=== PATIENT | male | born 1985 | race Two or more races ===

== ENCOUNTER 2022-07-21 13:54 | Emergency (ER) | payer MEDICARE, MEDICAID ==
[~2022-07-21] VITALS: Ht 172.7 cm; Wt 93.6 kg
[~2022-07-21 13:54] MED LIST: CLIN150C2 PO; ESCI20TA29 PO; QUET-1 PO; RISP3TAB PO
[2022-07-21 14:47] LABS: BASOPHILS % (AUTO) 0.4 % (0-1); EOSINOPHILS # (AUTO) 0.3 X10'3 (0-0.9); EOSINOPHILS % (AUTO) 2.7 % (0-6); HEMATOCRIT 38.7 % (42.0-52.0); HEMOGLOBIN 12.9 g/dl (14.0-17.9); LYMPHOCYTES # (AUTO) 4.1 X10'3 (1.1-4.8); MEAN CORPUSCULAR HEMOGLOBIN 30.2 PG (27.0-31.0); MEAN CORPUSCULAR HGB CONC 33.3 g/dL (33.0-36.5); MEAN CORPUSCULAR VOLUME 90.5 FL (78-98); MEAN PLATELET VOLUME 7.8 FL (7.4-10.4); MONOCYTES # (AUTO) 1.1 X10'3 (0-0.9); MONOCYTES % (AUTO) 10.3 % (2-12); NEUTROPHILS # (AUTO) 5.2 X10'3 (1.8-7.7); NEUTROPHILS % (AUTO) 48.6 % (42-75); PLATELET COUNT 179 X10'3 (140-440); RED BLOOD COUNT 4.28 X10'6 (4.70-6.10); RED CELL DISTRIBUTION WIDTH 15.7 % (11.5-14.5); WHITE BLOOD COUNT 10.8 X10'3 (4.5-11.0)
[2022-07-21 15:00] LABS: ALANINE AMINOTRANSFERASE 9 U/L (12-78); ALBUMIN 3.3 G/DL (3.4-5.0); ALBUMIN/GLOBULIN RATIO 0.9 (1.1-1.5); ALKALINE PHOSPHATASE 99 IU/L (46-116); ANION GAP 9 (8-16); ASPARTATE AMINO TRANSFERASE 15 U/L (10-37); BILIRUBIN,TOTAL 0.2 MG/DL (0.1-1.0); BLOOD UREA NITROGEN 14 MG/DL (7-18); BUN/CREATININE RATIO 10.5 (10.0-20.0); CHLORIDE 108 MMOL/L (99-107); CREATININE 1.33 MG/DL (0.60-1.10); ETHANOL < 0.010 GM/DL (0.0-0.010); GLUCOSE 88 MG/DL (70-104); POTASSIUM 3.9 MMOL/L (3.5-5.1); SODIUM 140 MMOL/L (135-145); TOTAL CARBON DIOXIDE 23.1 MMOL/L (24-32); TOTAL PROTEIN 6.9 G/DL (6.4-8.2); eGFR 61 ML/MIN
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
--- NOTE | 2022-07-21 15:32 | NUR ---
PT LAYING IN [facility] REFUSES TO COMMUNICATE WITH STAFF. ALL CORDS/DRAWERS REMOVED FROM ROOM AND CABINETS ARE LOCKED.
[2022-07-21] MEDS ORDERED: diphenhydrAMINE 50 mg/ml inj IM ONE (15:45)
[2022-07-21] MEDS ORDERED: LORazepam 2 mg/ml vial IM ONE (15:45)
[2022-07-21] MEDS ORDERED: haloperidol lactate 5mg/ml inj IM ONE (15:45)
--- NOTE | 2022-07-21 15:45 | NUR ---
PER ASIF REEVES ATIVAN BENADRYL AND HALDOL ORD IM IF NEEDED. PT IS NOT SHOWING SX OF AGRESSION AT THIS TIME. RN WILL LEAVE THESE MEDS ACTIVE ON THE APR AND CONT TO MONITOR PT.
--- NOTE | 2022-07-21 15:49 | NUR ---
RN PROVIDED SANDWICH AND CHIPS TO PT PER PT REQ. PT REFUSED WATER. SECURITY IS STANDING BY ROOM TO ASSIST.
--- NOTE | 2022-07-21 18:22 | NUR ---
ASSUMED CARE OF THE PT. GAVE PT A NEW URINAL AND DINNER TRAY WITH SECURITY STAND BY. PT IS REFUSING VITALS AND ALL COMMUNICATION AT THIS TIME. NO S/S OF AGRESSION AT THIS TIME. MEDS IN THE MAR WILL REMAIN ACTIVE IF NEEDED.
--- NOTE | 2022-07-21 19:08 | NUR ---
Informed from DAVE Dotson that public guardian to sit with the patient for safety was denied.
--- NOTE | 2022-07-21 19:24 | NUR ---
PT LAYING ON GURNEY IN ER BED 9 WITH EYES CLOSED. NO S/S OF DISTRESS OR AGRESSION AT THIS TIME.
--- NOTE | 2022-07-21 20:28 | NUR ---
PT LAYING ON RIGHT SIDE WITH EYES OPEN. PT IS NOT INTERACTING WITH STAFF AT THIS TIME. NO S/S OF DISTRESS OR AGRESSTION OBSERVED.
[2022-07-21 21:16] LABS: CLARITY,URINE CLEAR (Clear); COLOR,URINE YELLOW (Yellow); GLUCOSE, URINE NEGATIVE (Neg); KETONES,URINE NEGATIVE (Neg); LEUKOCYTE ESTERASE ,URINE NEGATIVE (Neg); NITRITES, URINE NEGATIVE (Neg); OCCULT BLOOD,URINE TRACE-INTACT (Neg); PROTEIN,URINE NEGATIVE (Neg); UROBILINOGEN,URINE 0.2 E.U/dL (0.2-1.0)
[2022-07-21 21:21] LABS: UA COLLECTION TYPE CLN CATCH MIDSTREAM
[2022-07-21 21:22] LABS: SQUAMOUS EPITHELIAL CELL,UR NONE SEEN /LPF (FEW)
[2022-07-21 21:23] LABS: BACTERIA,URINE NONE SEEN /HPF (Neg); WBC,URINE 0-4 /HPF (0-4)
[2022-07-21 21:25] LABS: URINE AMPHETAMINE SCREEN NEGATIVE (Neg); URINE BARBITUATE SCREEN NEGATIVE (Neg); URINE BENZODIAZEPINES SCREEN NEGATIVE (Neg); URINE CANNABINOID SCREEN NEGATIVE (Neg); URINE COCAINE SCREEN NEGATIVE (Neg); URINE METHADONE SCREEN NEGATIVE (Neg); URINE OPIATE SCREEN NEGATIVE (Neg); URINE PHENCYCLIDINE SCREEN NEGATIVE (Neg)
--- NOTE | 2022-07-21 22:06 | NUR ---
PT CONTINUES TO LAY ON RIGHT SIDE WITH EYES CLOSED. NO S/S OF DISTRESS OPR AGRESSION AT THIS TIME.
--- NOTE | 2022-07-21 23:47 | NUR ---
PT IS ASLEEP ON GURNEY IN ER BED 9. PT CONTINUES TO SHOW NO S/S OF DISTRESS OR AGRESSION.
--- NOTE | 2022-07-22 01:00 | NUR ---
PT CONTINUES TO SLEEP ON GURNEY. PT HAS NOT GOTTEN OUT OF BED. RR ARE EQUAL AND UNLABORED. NO S/S OF DISTRESS OR AGGRESSION AT THIS TIME.
--- NOTE | 2022-07-22 05:33 | NUR ---
PT REMAINS ASLEEP IN ER BED 9. PT SHOWS NO S/S OF DISTRESS OR AGGRESSION.
--- NOTE | 2022-07-22 06:36 | NUR ---
Patient laying right miranda position,respirations regular.We will continue to monitor.
--- NOTE | 2022-07-22 08:15 | NUR ---
Food tray outside the room-visible to patient.Asleep at this time.respirations regular.We will monitor.
--- NOTE | 2022-07-22 09:36 | NUR ---
Remained quiet in the room,eyes open, laying miranda to right side,stated "NO" when offered breakfast tray.
[2022-07-22] MEDS ORDERED: CLOZ150T3 PO (10:31)
[2022-07-22] MEDS ORDERED: FAMO20TA8 PO (10:31)
[2022-07-22] MEDS ORDERED: FOLI1TAB27 PO (10:31)
[2022-07-22] MEDS ORDERED: BUSP30TA3 PO (10:42)
[2022-07-22] MEDS ORDERED: VALP250C44 PO (10:42)
[2022-07-22] MEDS ORDERED: POLY17PO59 PO (10:42)
[2022-07-22] MEDS ORDERED: PROP10TA10 PO (10:45)
[2022-07-22] MEDS ORDERED: [UNRECOGNIZED DRUG - CODE] PO (10:45)
[2022-07-22] MEDS ORDERED: CARB100T15 PO (10:45)
[2022-07-22] MEDS ORDERED: SENN-263 PO (10:46)
--- NOTE | 2022-07-22 10:46 | NUR ---
copied med rec from [facility] ([facility])
--- NOTE | 2022-07-22 11:02 | NUR ---
patient given a green gown, no green blanket available- security on stand by.Patient consumed approximately 80% of breakfast.Remained quiet, not making eye contact.
--- NOTE | 2022-07-22 11:12 | NUR ---
med rec copy given to Dr. Bone for review and signature.
--- NOTE | 2022-07-22 12:36 | NUR ---
Spoke with Chris SAEED/juan carlos Brown,given hm report regarding this patient.
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
--- NOTE | 2022-07-22 14:00 | NUR ---
Patient wanted to speak to [facility],Adriane made aware.
--- NOTE | 2022-07-22 17:08 | NUR ---
Patient used telephone 1x.Cooperative and redirectable at this time.
--- NOTE | 2022-07-22 18:08 | NUR ---
Patient ate 50% of dinner.
--- NOTE | 2022-07-22 18:34 | NUR ---
PT IN 4 POINT HARD RESTRAINTS HE IS VISIBLY SHAKING, HAD TO BE RECOVERED BY SECURITY FROM OUTSIDE. HE JUST RECEIVED A B52
--- NOTE | 2022-07-23 06:30 | NUR ---
Pt laying on gulee w/ his eyes closed.
--- NOTE | 2022-07-23 07:40 | NUR ---
Pt was brought breakfast. Pt stated he didn't want to eat at this time. Breakfast was left at bedside. Pt allowed for VS to be taken.
--- NOTE | 2022-07-23 09:31 | NUR ---
Pt ref to eat. Pt on gurney eyes closed.
--- NOTE | 2022-07-23 18:12 | NUR ---
assumed care of the pt. pt has finished eating his dinner and recd juice as request. pt is sitting on the er gurleicester in bed 15. pt states no other needs at this time.
--- NOTE | 2022-07-23 18:23 | NUR ---
no assessments able to be completed at this time.
--- NOTE | 2022-07-23 18:30 | NUR ---
He was eating pages out of his book. Both books removed. Than he started to eat papertowels. So now everything is out of his room.
--- NOTE | 2022-07-23 18:41 | NUR ---
books and papertowels removed from pts room as pt was eating the paper.
--- NOTE | 2022-07-23 21:44 | NUR ---
[facility] in [place] refused pt
--- NOTE | 2022-07-24 07:15 | NUR ---
PT resting quietly in bed, requesting drink of water.
--- NOTE | 2022-07-24 08:01 | NUR ---
Patient up and asking questions at door regarding time of transfer. Pt notified that transfer status is decided by [facility]
--- NOTE | 2022-07-24 09:03 | NUR ---
Patient quietly at bedside. No difficulties noted
[2022-07-24] MEDS ORDERED: haloperidol lactate 5mg/ml inj IM ONE (10:05)
[2022-07-24] MEDS ORDERED: benztropine 1 mg/ml 2ml ampule IM ONE (10:05)
[2022-07-24] MEDS ORDERED: LORazepam 2 mg/ml vial IM ONE (10:05)
[2022-07-24] MEDS ORDERED: diphenhydrAMINE 50 mg/ml inj IM ONE (10:25)
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
--- NOTE | 2022-07-24 11:26 | NUR ---
Pt very responsive to medication. Resting in bed at this time. Will continue to monitor.
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
--- NOTE | 2022-07-24 12:30 | NUR ---
PATIENT RESTING IN BED - ATE ALL OF NOON TRAY. PT AGITATED, BUT NOT SHOUTING OUT OR ATTEMPTING TO LEAVE.
--- NOTE | 2022-07-24 13:40 | NUR ---
PT SITTING UP STRAIGHT IN BED ASKING TO LEAVE TAYLOR - APPEARS AGITATED. DOES HAVE PERIODS OF DOSING OFF TO SLEEP FOR APPX 10-15 MINUTES AND THEN SITS UP WIDE AWAKE. CONTINUE TO MONITOR.
--- NOTE | 2022-07-24 14:23 | NUR ---
PT PLACED IN TWO POINT RESTRAINTS DUE TO AGRESSIVE BEHAVIOR. PRIOR MEDICATION MINIMALLY EFFECTIVE - PT SLEPT FOR APPX 30 MINUTES AND HAS BEEN SITTING UP AWAKE AT BEDSIDE SINCE THEN APPEARING AGITATED AND USING AGGRESSIVE LANGUAGE WITH STAFF. STAFF UNABLE TO ENTER ROOM WITHOUT [facility] SECURITY AT BEDSIDE - VITALS UNABLE TO BE OBTAINED AT THIS TIME FOR THIS REASON. HOWEVER, PT SITTING UP, RR 18 WITH BREATHING NON-LABORED, DENYING COMPLAINTS OF PAIN. PATIENT UNDER SITTERS SUPERVISION. WILL CONTINUE TO MONITOR CLOSELY.
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
--- NOTE | 2022-07-24 15:33 | NUR ---
PT DIRECTLY ACROSS ROOM FROM PATIENT, CONSISTENLY MONITORING.
--- NOTE | 2022-07-24 16:13 | NUR ---
SPOKE WITH MD DANIELS REGARDING INCREASED PATIENT AGGRESSION AND AGITATION. PT SHOUTING AND ASKING TO HAVE ANKLE RESTRAINTS REMOVE. HOME MEDICATIONS STILL BEING PROCESSED THROUGH PHARMACY - MD DANIELS STATED TO RESTART HOME MEDICATIONS AND CONTINUE TO MONITOR. MD AWARE HE IS IN 2 POINT RESTRAINTS. RR LOW 20'S, VOICING CONCERNS.
[2022-07-24] MEDS ORDERED: CLOZAPINE 100 MG TAB.RAPDIS PO PRN (16:45)
[2022-07-24] MEDS ORDERED: carBAMazepine 100mg chewable tablet PO SCH (17:13)
[2022-07-24] MEDS ORDERED: valproic acid 250mg capsule PO SCH (17:13)
[2022-07-24] MEDS ORDERED: busPIRone 15mg tablet PO SCH (17:13)
--- NOTE | 2022-07-24 18:31 | NUR ---
PATIENT GIVEN ARVIND CRACKERS PER REQUEST. VOIDED 300ML STRAW-COLORED URINE. PT STILL APPEARING AGITATED AND SHAKY. IN 2 PT RESTRAINTS AT THIS TIME - UNABLE TO ASSESS VS DUE TO VOILENCE. VISUALLY, RR 18. STATING HE HAS NO PAIN. SECURITY CALLED TO BED THIS EVENING WITH EARLIER LINOTYPIST. RN HANDOFF TO ARIS.
[2022-07-24 19:58] LABS: BASOPHILS % (AUTO) 0.5 % (0-1); EOSINOPHILS # (AUTO) 0.1 X10'3 (0-0.9); EOSINOPHILS % (AUTO) 1.5 % (0-6); HEMATOCRIT 39.3 % (42.0-52.0); HEMOGLOBIN 12.9 g/dl (14.0-17.9); LYMPHOCYTES # (AUTO) 3.2 X10'3 (1.1-4.8); LYMPHOCYTES % (AUTO) 32.6 % (21-51); MEAN CORPUSCULAR HEMOGLOBIN 30.3 PG (27.0-31.0); MEAN CORPUSCULAR HGB CONC 32.9 g/dL (33.0-36.5); MEAN CORPUSCULAR VOLUME 92.1 FL (78-98); MEAN PLATELET VOLUME 8.3 FL (7.4-10.4); MONOCYTES # (AUTO) 1.2 X10'3 (0-0.9); MONOCYTES % (AUTO) 12.4 % (2-12); NEUTROPHILS # (AUTO) 5.1 X10'3 (1.8-7.7); PLATELET COUNT 194 X10'3 (140-440); RED BLOOD COUNT 4.27 X10'6 (4.70-6.10); RED CELL DISTRIBUTION WIDTH 15.7 % (11.5-14.5); WHITE BLOOD COUNT 9.7 X10'3 (4.5-11.0)
[2022-07-24] MEDS: famotidine 20mg tablet PO SCH (20:09)
[2022-07-24] MEDS: propranolol 10mg tablet PO SCH (20:19)
--- NOTE | 2022-07-24 21:48 | NUR ---
2100 MEDS TO BE GIVEN @1AM , RETIMED PER PHARMACY
--- NOTE | 2022-07-25 00:05 | NUR ---
pt sleeping no visual signs of distrss
[2022-07-25] MEDS: busPIRone 15mg tablet PO SCH ×4 (02:02→20:29)
[2022-07-25] MEDS: valproic acid 250mg capsule PO SCH ×4 (02:02→20:29)
[2022-07-25] MEDS: carBAMazepine 100mg chewable tablet PO SCH ×4 (02:02→20:24)
[2022-07-25] MEDS: polyethylene glycol 3350 17gm powd pack PO SCH (08:34)
[2022-07-25] MEDS: sennosides 8.6mg tablet PO SCH (08:35)
[2022-07-25] MEDS: risperiDONE 2mg tablet PO SCH (08:36)
[2022-07-25] MEDS: quetiapine 100mg tablet PO SCH (08:36)
[2022-07-25] MEDS: famotidine 20mg tablet PO SCH ×2 (08:37→20:17)
[2022-07-25] MEDS: folic acid 1mg tablet PO SCH (08:37)
[2022-07-25] MEDS: propranolol 10mg tablet PO SCH ×2 (08:37→20:18)
--- NOTE | 2022-07-25 12:05 | NUR ---
break rn covering. pt resting quietly, eyes closed. no signs/symptoms of distress.
--- NOTE | 2022-07-25 19:30 | NUR ---
food tray provided
--- NOTE | 2022-07-26 06:22 | NUR ---
Assumed care from NOC Nurse. Pt laying on gurney eyes closed. Pt in stable condition.
--- NOTE | 2022-07-26 07:20 | NUR ---
Pt ref VS. Pt laying bri santos.
[2022-07-26] MEDS: polyethylene glycol 3350 17gm powd pack PO SCH (07:56)
[2022-07-26] MEDS: folic acid 1mg tablet PO SCH (07:56)
[2022-07-26] MEDS: valproic acid 250mg capsule PO SCH ×3 (07:57→21:07)
[2022-07-26] MEDS: busPIRone 15mg tablet PO SCH ×3 (07:58→21:07)
[2022-07-26] MEDS: propranolol 10mg tablet PO SCH ×2 (07:58→20:08)
[2022-07-26] MEDS: sennosides 8.6mg tablet PO SCH (07:58)
[2022-07-26] MEDS: famotidine 20mg tablet PO SCH ×2 (07:58→20:08)
[2022-07-26] MEDS: carBAMazepine 100mg chewable tablet PO SCH ×3 (07:59→21:07)
[2022-07-26] MEDS: quetiapine 100mg tablet PO SCH (07:59)
[2022-07-26] MEDS: risperiDONE 2mg tablet PO SCH (08:00)
--- NOTE | 2022-07-26 08:03 | NUR ---
Pt took all his morning medications. No ASE noted thus far. Pt refused morning care. Pt refused breakfast.
--- NOTE | 2022-07-26 09:08 | NUR ---
Pt laying on gurney, eyes closed. Pt is calm and cooperative at this time. RR even and unlabored.
--- NOTE | 2022-07-26 10:05 | NUR ---
Pt laying on [employer] with his eyes closed.
--- NOTE | 2022-07-26 10:51 | NUR ---
BACK TO ROOM FROM BATHROOM AT THIS TIME. PATIENT LAYED BACK DOWN ONTO RIGHT SIDE.
--- NOTE | 2022-07-26 11:54 | NUR ---
Pt on gurney resting, eyeys closed. Pt is calm and cooperative.
--- NOTE | 2022-07-26 12:48 | NUR ---
Pt ate 100% of his lunch. Pt calm and coopertive.
--- NOTE | 2022-07-26 13:50 | NUR ---
Pt took all his 1300 meds. No behaviors noted.
--- NOTE | 2022-07-26 14:46 | NUR ---
Pt on gurney resting. Pt is calm and cooperative.
--- NOTE | 2022-07-26 15:48 | NUR ---
Pt laying on gurney, pt resting. Pt is calm and has his eyes closed.
--- NOTE | 2022-07-26 16:40 | NUR ---
Pt laying on gurney, eyes are closed. Pt is calm and cooperative.
--- NOTE | 2022-07-26 17:41 | NUR ---
Dinner meal tray given.
--- NOTE | 2022-07-26 18:07 | NUR ---
Rport given to noc nurse.
--- NOTE | 2022-07-26 18:07 | NUR ---
Pt ref his dinner x3. Sub offered. Pt ref. Pt up to RR. No behaviors noted. Pt is calm and cooperative.
--- NOTE | 2022-07-26 22:33 | NUR ---
pt requested to sierra his teeth, toothbrush and paste provided
[2022-07-27] MEDS: valproic acid 250mg capsule PO SCH ×3 (07:37→20:56)
[2022-07-27] MEDS: famotidine 20mg tablet PO SCH ×2 (07:37→20:46)
[2022-07-27] MEDS: polyethylene glycol 3350 17gm powd pack PO SCH (07:37)
[2022-07-27] MEDS: folic acid 1mg tablet PO SCH (07:37)
[2022-07-27] MEDS: propranolol 10mg tablet PO SCH ×2 (07:37→20:46)
[2022-07-27] MEDS: busPIRone 15mg tablet PO SCH ×3 (07:37→20:46)
[2022-07-27] MEDS: risperiDONE 2mg tablet PO SCH (07:38)
[2022-07-27] MEDS: quetiapine 100mg tablet PO SCH (07:38)
[2022-07-27] MEDS: sennosides 8.6mg tablet PO SCH (07:38)
[2022-07-27] MEDS: carBAMazepine 100mg chewable tablet PO SCH ×3 (07:38→20:46)
--- NOTE | 2022-07-28 02:39 | NUR ---
pt awake mildly aggitated, pt requested meds to help him sleep . md notified prn med given
--- NOTE | 2022-07-28 07:45 | NUR ---
PT REMAINS CALM AND COOPERATIVE. PT HAS BEEN UP AND AMBULATED TO BATHROOM AND BACK.
[2022-07-28 10:00] VITALS: BP 106/67
[2022-07-28] MEDS: folic acid 1mg tablet PO SCH (10:07)
[2022-07-28] MEDS: valproic acid 250mg capsule PO SCH ×3 (10:07→20:21)
[2022-07-28] MEDS: busPIRone 15mg tablet PO SCH ×3 (10:07→20:21)
[2022-07-28] MEDS: propranolol 10mg tablet PO SCH ×2 (10:07→20:21)
[2022-07-28] MEDS: risperiDONE 2mg tablet PO SCH (10:08)
[2022-07-28] MEDS: sennosides 8.6mg tablet PO SCH (10:08)
[2022-07-28] MEDS: quetiapine 100mg tablet PO SCH (10:08)
[2022-07-28] MEDS: famotidine 20mg tablet PO SCH ×2 (10:08→20:21)
[2022-07-28] MEDS: carBAMazepine 100mg chewable tablet PO SCH ×3 (10:08→20:21)
[2022-07-28] MEDS: polyethylene glycol 3350 17gm powd pack PO SCH (10:08)
--- NOTE | 2022-07-28 10:10 | NUR ---
PT NOW SITTING UP AND EATING BREAKFAST TRAY ON BED, DENIES NEEDS AT TIME.
[2022-07-28 16:56] LABS: BASOPHILS % (AUTO) 1.1 % (0-1); EOSINOPHILS # (AUTO) 0.2 X10'3 (0-0.9); EOSINOPHILS % (AUTO) 3.7 % (0-6); HEMOGLOBIN 11.8 g/dl (14.0-17.9); LYMPHOCYTES # (AUTO) 2.4 X10'3 (1.1-4.8); MEAN CORPUSCULAR HGB CONC 32.8 g/dL (33.0-36.5); MEAN CORPUSCULAR VOLUME 91.3 FL (78-98); MEAN PLATELET VOLUME 8.5 FL (7.4-10.4); MONOCYTES # (AUTO) 0.6 X10'3 (0-0.9); MONOCYTES % (AUTO) 13.4 % (2-12); NEUTROPHILS # (AUTO) 1.4 X10'3 (1.8-7.7); NEUTROPHILS % (AUTO) 30.8 % (42-75); PLATELET COUNT 187 X10'3 (140-440); RED BLOOD COUNT 3.95 X10'6 (4.70-6.10); RED CELL DISTRIBUTION WIDTH 15.2 % (11.5-14.5); WHITE BLOOD COUNT 4.7 X10'3 (4.5-11.0)
--- NOTE | 2022-07-28 20:25 | NUR ---
PT COOPERATIVE WITH EVENING MED PASS. PT REFUSING TO COMMUNICATE ANY FURTHER TO PERFORM ASSESSMENTS.
[2022-07-29] MEDS: busPIRone 15mg tablet PO SCH ×3 (08:22→20:08)
[2022-07-29] MEDS: folic acid 1mg tablet PO SCH (08:22)
[2022-07-29] MEDS: risperiDONE 2mg tablet PO SCH (08:23)
[2022-07-29] MEDS: propranolol 10mg tablet PO SCH ×2 (08:23→20:08)
[2022-07-29] MEDS: sennosides 8.6mg tablet PO SCH (08:23)
[2022-07-29] MEDS: famotidine 20mg tablet PO SCH ×2 (08:23→20:08)
[2022-07-29] MEDS: polyethylene glycol 3350 17gm powd pack PO SCH (08:23)
[2022-07-29] MEDS: carBAMazepine 100mg chewable tablet PO SCH ×3 (08:24→20:08)
[2022-07-29] MEDS: quetiapine 100mg tablet PO SCH (08:24)
[2022-07-29] MEDS: valproic acid 250mg capsule PO SCH ×3 (08:30→20:08)
--- NOTE | 2022-07-29 08:59 | NUR ---
Pt sleeping in bed this morning upon arrival. Pt took morning meds with no issues this morning. No actue distress noted at this time.
--- NOTE | 2022-07-29 13:21 | NUR ---
PT TOOK AFTERNOON MEDS WITH NO ISSUES. PT ATE LUNCH TRAY IN ROOM. NO ACUTE DISTRESS NOTED AT THIS TIME.
--- NOTE | 2022-07-29 14:56 | NUR ---
Pt asleep in bed. No acute distress noted at this time.
--- NOTE | 2022-07-29 17:12 | NUR ---
PT REFUSING ANY FUTHER ASSESSMENT AT THIS TIME.
--- NOTE | 2022-07-29 18:54 | NUR ---
ASSUMED CARE OF THE PT. PT IS REFUSING TO COOPERATE WITH ASSESSMENTS AT THIS TIME.
--- NOTE | 2022-07-30 06:21 | NUR ---
Patient asleep comfortably at this time, breathing normally.
--- NOTE | 2022-07-30 09:00 | NUR ---
Patient refused any type of assessment or vital signs checked
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
--- NOTE | 2022-07-30 13:16 | NUR ---
Patient eloped about 20 minutes ago per charge nurse Radha. I was in the other patient's room when I found out patient eloped. Per Radha SAEED, she called the [employer] to report the patient's elopement
--- NOTE | 2022-07-30 13:49 | NUR ---
JON[facility] CANNON'S OFFICE CALLED, VERIFIED THAT PT HAD ELOPED AND THAT SILAS WAS CALLED WITH INSTRUCTIONS THAT IF PT IS FOUND BY [employer] THAT PT IS TO GO TO [facility]. A REQUEST WAS MADE THAT IF THE PT DOES RETURN TO THE ER THAT THE JON[facility] BUSH OFFICE TO BE CALLED AT [phone]
== END 2022-07-30 13:15 | disposition left against medical advice (07) ==
LOC: ER 13:54
DX: F25.0 Schizoaffective disorder, bipolar type (principal); Z20.822 Contact with and (suspected) exposure to COVID-19
CPT/HCPCS: 36415; 80053; 80305; 80320; 81001; 85025; 87811; 96372; 99285; J1200; J1630; J2060